=== PATIENT | female | born 1975 ===

== ENCOUNTER 2018-11-22 08:17 | Outpatient (CLI) | payer OTHER | END 2018-11-22 10:40 | disposition still patient (30) | LOC: C.CTH 08:17 | DX: R20.0 Anesthesia of skin (principal) ==

== ENCOUNTER 2018-11-22 08:59 | Outpatient (CLI) | payer OTHER | END 2018-11-22 10:40 | disposition still patient (30) | LOC: C.RADH 08:59 | DX: R20.2 Paresthesia of skin (principal) ==

== ENCOUNTER 2018-11-22 10:41 | Emergency (ER) | payer OTHER | END 2018-11-22 16:28 | disposition home or self-care (01) | LOC: C.ER 10:41 ==